=== PATIENT | male | born 1965 | race Caucasian/White ===

== ENCOUNTER 2024-09-05 17:26 | Emergency (ER) | payer MEDICAID ==
[~2024-09-05] VITALS: Ht 170.2 cm; Wt 85.0 kg
[2024-09-05 17:27] VITALS: O2SAT 99
[2024-09-05 18:22] LABS: BASOPHILS % 0.7 % (0.0-2.0); EOSINOPHILS % 4.2 % (0.0-5.0); HEMOGLOBIN. 14.8 g/dL (14.0-18.0); LYMPHOCYTES % 28.8 % (20.0-50.0); MEAN CORPUSCULAR HEMOGLOBIN 30.7 pg (28.0-32.0); MEAN CORPUSCULAR HGB CONC 34.3 g/dL (31.0-37.0); MEAN CORPUSCULAR VOLUME 89.6 fL (80.0-94.0); MEAN PLATELET VOLUME 8.5 fl (7.4-10.4); MONOCYTES % 4.6 % (2.0-8.0); NEUTROPHILS % 61.7 % (40.0-76.0); PLATELET 205 x1000/uL (130-400); WHITE BLOOD COUNT 8.7 x1000/uL (4.5-11.0)
[2024-09-05 18:30] LABS: CHLORIDE 111 mEq/L (98-107); SODIUM 143 mEq/L (136-145)
[2024-09-05 18:31] LABS: CARBON DIOXIDE 27 mEq/L (21-32)
[2024-09-05] MEDS ORDERED: IOHEXOL-350 100 ML BOTTLE ONE (18:33)
[2024-09-05 18:36] LABS: CREATININE 1.5 mg/dL (0.6-1.3); GLUCOSE 127 mg/dL (70-105); UREA NITROGEN BLOOD 17 mg/dL (9-23)
[2024-09-05 18:37] LABS: TROPONIN I HIGH SENSITIVITY 28 ng/L (3.0-53)
[2024-09-05 19:09] LABS: INR 0.9; PARTIAL THROMBOPLASTIN TIME 26.5 sec (23.4-31.0); PROTHROMBIN TIME 10.4 sec (9.6-11.0)
[2024-09-05 23:37] VITALS: BP 145/93; PULSE 77; RESP 12; TEMP 36.89184; O2SAT 98
== END 2024-09-06 00:15 | disposition short-term general hospital (02) ==
LOC: ER 17:26 → EDBEDREQ 18:27 → ER 09-06 00:15
DX: R07.89 Other chest pain (principal); E78.5 Hyperlipidemia, unspecified; I11.9 Hypertensive heart disease without heart failure
CPT/HCPCS: 99285; 71045; 80048; 83880; 85025; 85610; 85730; 84484; 36415; 93005; Q9967